=== PATIENT | male | born 1985 | race African-American/Black ===

== ENCOUNTER 2017-02-27 06:54 | Emergency (ER) | payer SELFPAY ==
[~2017-02-27] VITALS: Ht 180.3 cm; Wt 95.0 kg
[~2017-02-27 06:54] MED LIST: SULF-154 PO
[2017-02-27 06:55] VITALS: BP 168/94; PULSE 95; RESP 15; TEMP 97.8; O2SAT 97
[2017-02-27 08:08] VITALS: BP 138/97; PULSE 87; RESP 18; TEMP 98.5; O2SAT 98
[2017-02-27] MEDS ORDERED: MAGICADU2 SWISH-SWAL (08:46)
--- NOTE | 2017-02-27 08:48 | PD ---
HPI Chief Complaint: ENT Complaint Time Seen by Provider: 08:26 Travel History International Travel<30 days: No Contact w/Intl Traveler<30days: No Traveled to known affect area: No History of Present Illness HPI This patient says he is having a reaction to bleach. He says that yesterday morning this father was using bleach sprayed to clean and it irritated his throat. His chief complaint is throat pain. Has no fever. Symptoms severity is mild. No alleviating factors. Feels like his nose is running and he is a little bit congested. Not short of breath. PFSH Past Medical History Medical History: Denies Significant Hx Tetanus Vaccination: < 5 Years Past Surgical History Surgical History: No Previous Surgery Social History Alcohol Use: No Tobacco Use: Yes Substance Use: No Allergies-Medications (Allergen,Severity, Reaction): Coded Allergies: No Known Allergies (Unverified , 02/27/17) Reported Meds & Prescriptions Reported Meds & Active Scripts Active Magic Mouthwash Adult Liq (Multi-Ingredient Mouthwash/Gargle) 120 Ml Susp 10 Ml SWISH-SWAL ACHS Each 5mL contains: Nystatin 200,000units, Diphenhydramine 4.25mg, Viscous Lidocaine 10mg, Arrieta syrup 0.8 mL Review of Systems General / Constitutional: No: Fever HENT: Positive: Sore Throat Respiratory: No: Cough Gastrointestinal: No: Vomiting Physical Exam Narrative NECK: Symmetrical appearance, midline trachea. No mass or crepitus. Thyroid without enlargement, tenderness, or mass. RESPIRATORY: Respiratory effort unlabored, no retractions or use of accessory muscles. Breath sounds are clear and symmetric. Throat clear Data Data Last Documented VS Vital Signs Date Time Temp Pulse Resp B/P Pulse Ox O2 Delivery O2 Flow Rate FiO2 02/27/17 08:08 98.5 87 18 138/97 98 Room Air MDM Medical Decision Making Medical Screen Exam Complete: Yes Emergency Medical Condition: Yes Medical Record Reviewed: Yes Differential Diagnosis Bleach irritation, pharyngitis, bronchitis Narrative Course I have reviewed the patient's electronic medical record. Patient has no objective findings on exam. I wrote him some Magic mouthwash for symptom relief. I expect gradual resolution of symptoms. Diagnosis Primary Impression: Throat pain in adult Additional Impression: Accidental exposure to bleach Additional Instructions: The patient was advised to follow up with their physician and return if they worsen. Med/Other Pt SpecificInfo: Prescription(s) given Scripts Gqvuzemp-Trntapgsbgzsgoj-Xzyizvutf Liq (Magic Mouthwash Adult Liq)120 Ml Susp10 Ml SWISH-SWAL ACHS #120 ML Ref 0 Each 5mL contains: Nystatin 200,000units, Diphenhydramine 4.25mg, Viscous Lidocaine 10mg, Arrieta syrup 0.8 mL Prov:Ahsan Miranda MD 02/27/17 Disposition: 01 DISCHARGE HOME Condition: Stable Ahsan Miranda MD Feb 27, 2017 08:48
[2017-02-27] MEDS ORDERED: ALUMINUM/MAGNESIUM/SIMETH 30 ML CUP PO ONE (09:15)
[2017-02-27] MEDS ORDERED: LIDOCAINE VISCOUS 2% SOLN 15 ML UDC PO ONE (09:15)
== END 2017-02-27 09:21 | disposition home or self-care (01) ==
LOC: NEPE 06:54
DX: R07.0 Pain in throat (principal)
CPT/HCPCS: 99283

== ENCOUNTER 2017-07-11 17:47 | Emergency (ER) | payer OTHER ==
[~2017-07-11] VITALS: Ht 180.3 cm; Wt 95.0 kg
[~2017-07-11 17:47] MED LIST changes: +MAGICADU2 SWISH-SWAL; -SULF-154 PO
[2017-07-11 17:49] VITALS: BP 164/92; PULSE 90; RESP 20; TEMP 98; O2SAT 96
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
[2017-07-11] MEDS ORDERED: KETOROLAC TROMETHAMINE 60 MG/2 ML (IM) VIAL IM ONE (18:45)
[2017-07-11] MEDS ORDERED: ORPHENADRINE INJ 60 MG/2 ML AMP IM ONE (18:45)
[2017-07-11] MEDS ORDERED: ROBA500T PO (18:57)
[2017-07-11] MEDS ORDERED: IBUP800T23 PO (18:57)
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
== END 2017-07-11 19:24 | disposition home or self-care (01) ==
LOC: NEPK 17:47
DX: S16.1XXA Strain of muscle, fascia and tendon at neck level, initial encounter (principal); S20.219A Contusion of unspecified front wall of thorax, initial encounter; V89.2XXA Person injured in unspecified motor-vehicle accident, traffic, initial encounter
CPT/HCPCS: 71010; 99283